=== PATIENT | female | born 1960 | race Caucasian/White ===

== ENCOUNTER 2019-01-02 19:12 | Emergency (ER) | payer MEDICAID ==
[2019-01-03] MEDS: HYDROmorphONE 0.5 MG/0.5 ML SYG IM (00:31)
[2019-01-03] MEDS: ONDANSETRON (ODT) 4 MG TAB ODT (00:32)
== END 2019-01-03 01:35 | disposition home or self-care (01) ==
LOC: FTE 19:12
DX: M79.605 Pain in left leg (principal); I10 Essential (primary) hypertension; E11.9 Type 2 diabetes mellitus without complications; Z79.4 Long term (current) use of insulin; Z79.82 Long term (current) use of aspirin
CPT/HCPCS: 93971; 96372; 99285-25